=== PATIENT | male | born 1995 | race African-American/Black ===

== ENCOUNTER 2018-03-15 07:33 | Inpatient (IN) ==
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
[2018-03-15 08:23] LABS: Baso % (Auto) 0.1 % (0.0-2.0); Eos % (Auto) 0.1 % (0.0-4.0); Hematocrit 31.9 % (39.0-51.0); Hemoglobin 10.4 gm/dL (13.0-17.0); Lymph # (Auto) 2.3 th/mm3 (1.0-4.8); Lymph % (Auto) 10.7 % (9.0-44.0); Mean Corpuscular HGB Conc 32.6 % (32.0-36.0); Mean Corpuscular Hemoglobin 32.1 pg (27.0-34.0); Mean Corpuscular Volume 98.4 fL (80.0-100.0); Mean Platelet Volume 7.6 fL (7.0-11.0); Mono # (Auto) 1.7 th/mm3 (0.0-0.9); Mono % (Auto) 7.9 % (0.0-8.0); Neut # (Auto) 17.4 th/mm3 (1.8-7.7); Neut % (Auto) 81.2 % (16.0-70.0); Platelet Count 294 th/mm3 (150-450); Red Blood Count 3.24 mil/mm3 (4.50-5.90); Red Cell Distribution Width 12.2 % (11.6-17.2); White Blood Count 21.4 th/mm3 (4.0-11.0)
[2018-03-15 08:33] LABS: Activated Partial Thrombo Time 21.2 sec (24.3-30.1); INR 1.1 Ratio; Prothrombin Time 10.9 sec (9.8-11.6)
[2018-03-15] MEDS ORDERED: Tetanus/Diphtheria Toxoid Adult Vaccine Inj 0.5 ML Vial IM ONE (08:52)
[2018-03-15] MEDS ORDERED: Sod Chloride 0.9% Inj 1,000 ML IV.SIG ONE (08:52)
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
[2018-03-15] MEDS ORDERED: Lidocaine 1% Inj 50 ML Vial INFILTRATN ONE (12:44)
[2018-03-15] MEDS ORDERED: Lidocaine PF 1% Inj 30 ML Vial INFILTRATN ONE ×2 (13:32→14:59)
[2018-03-15] MEDS ORDERED: Bisacodyl 10 MG Supp RECTAL PRN (16:00)
[2018-03-15] MEDS ORDERED: Acetaminophen 325 MG Tablet PO PRN ×2 (16:00→16:05)
[2018-03-15] MEDS ORDERED: Naloxone Inj 0.4 MG/ML Vial IV.PUSH PRN (16:05)
[2018-03-15] MEDS ORDERED: Morphine Sulfate Inj 2 MG/ML Vial IV.PUSH PRN (16:05)
[2018-03-15] MEDS ORDERED: Famotidine Premix Inj 20 MG/50 ML PIGGYBACK IV.SIG SCH (17:00)
[2018-03-15 17:12] LABS: Amphetamine Screen,Urine Pos (Neg); Barbiturate Screen,Urine Neg (Neg); Cannabinoid Screen,Urine Pos (Neg); Cocaine Screen,Urine Neg (Neg); Opiate Screen,Urine Neg (Neg)
[2018-03-15] MEDS ORDERED: Morphine Inj 4 MG/ML Vial IV.PUSH PRN (17:37)
[2018-03-15] MEDS: Morphine Inj 4 MG/ML Vial IV.PUSH PRN (18:05)
[2018-03-15] MEDS: Famotidine PF Inj 20 MG/2 ML Vial IV.PUSH SCH (18:05)
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
[2018-03-15] MEDS: ceFAZolin Inj 2,000 MG in Sodium Chlor 0.9% Inj 80 ML IV.SIG SCH (18:34)
[2018-03-15] MEDS: Senna/Docusate Sodium 8.6/50 MG Tablet PO SCH (22:28)
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
[2018-03-16] MEDS: ceFAZolin Inj 2,000 MG in Sodium Chlor 0.9% Inj 80 ML IV.SIG SCH ×3 (02:42→18:33)
[2018-03-16] MEDS: Morphine Inj 4 MG/ML Vial IV.PUSH PRN (02:43)
[2018-03-16] MEDS: Famotidine PF Inj 20 MG/2 ML Vial IV.PUSH SCH ×2 (06:50→18:33)
[2018-03-16] MEDS: Senna/Docusate Sodium 8.6/50 MG Tablet PO SCH ×2 (09:21→22:09)
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
[2018-03-16] MEDS ORDERED: Morphine Inj 4 MG/ML Vial IV.PUSH PRN (10:15)
[2018-03-16] MEDS: oxyCODONE/Acetaminophen 10/325 Tablet PO PRN ×2 (10:18→18:34)
--- NOTE | 2018-03-16 10:46 | XR ---
EXAM DATE: 03/16/2018 10:43 AM EDT AGE/SEX: 22 years / Male INDICATIONS: Cough, SHort of Breath CLINICAL DATA: This is the patient's subsequent encounter. Patient reports that signs and symptoms h ave been present for 2 days and indicates a pain score of 5/10. MEDICAL/SURGICAL HISTORY: None. None. [place] [facility] [place]. . FINDINGS: A single AP view of the chest demonstrates the lungs to be symmetrically aerated without evidence of mass, infiltrate or effusion. The cardiomediastinal contours are unremarkable. Osseous structures a re intact. CONCLUSION: No acute cardiopulmonary disease Electronically signed by: Gil Alvarenga MD 03/16/2018 10:45 AM EDT
--- NOTE | 2018-03-16 13:18 | MR ---
EXAM DATE: 03/16/2018 1:09 PM EDT AGE/SEX: 22 years / Male INDICATIONS: Pain. CLINICAL DATA: This is the patient's initial encounter. Patient reports that signs and symptoms have been present for 2 days and indicates a pain score of 9/10. MEDICAL/SURGICAL HISTORY: None. None. COMPARISON: [facility] – [place], [place] CERVICAL SPINE W/O CONTRAST, 03/16/2018. . TECHNIQUE: Multiplanar, multisequence MRI of the lumbar spine was performed without contrast. Patie nt was scanned in a sitting position; neutral, flexion, and extension scans were performed in the sa gittal plane. FINDINGS: Vertebra: Homogeneous signal. Normal alignment. Conus: Normal level and configuration. T12-L1: The thecal sac has a normal diameter. No evidence of disc bulge or protrusion. The neural foramina are patent bilaterally. L1-L2: The thecal sac has a normal diameter. No evidence of disc bulge or protrusion. The neural foramina are patent bilaterally. L2-L3: The thecal sac has a normal diameter. No evidence of disc bulge or protrusion. The neural foramina are patent bilaterally. L3-L4: The thecal sac has a normal diameter. No evidence of disc bulge or protrusion. The neural foramina are patent bilaterally. L4-L5: The thecal sac has a normal diameter. No evidence of disc bulge or protrusion. The neural foramina are patent bilaterally. L5-S1: The thecal sac has a normal diameter. No evidence of disc bulge or protrusion. The neural foramina are patent bilaterally. CONCLUSION: 1. Normal lumbar spine Electronically signed by: Gil Alvarenga MD 03/16/2018 1:17 PM EDT
--- NOTE | 2018-03-16 13:19 | MR ---
EXAM DATE: 03/16/2018 1:14 PM EDT AGE/SEX: 22 years / Male INDICATIONS: Pain. CLINICAL DATA: This is the patient's initial encounter. Patient reports that signs and symptoms have been present for 2 days and indicates a pain score of 8/10. MEDICAL/SURGICAL HISTORY: None. None. COMPARISON: [facility] – [place], MR CERVICAL SPINE W/O CONTRAST, 03/16/2018. . TECHNIQUE: Multiplanar, multisequence MRI of the thoracic spine was performed. FINDINGS: Vertebrae: Normal vertebral body height. Homogeneous marrow signal. Alignment: Normal. Cord: Normal position and configuration. T1-T2: The thecal sac has a normal diameter. No evidence of disc bulge or protrusion. T2-T3: The thecal sac has a normal diameter. No evidence of disc bulge or protrusion. T3-T4: The thecal sac has a normal diameter. No evidence of disc bulge or protrusion. T4-T5: The thecal sac has a normal diameter. No evidence of disc bulge or protrusion. T5-T6: The thecal sac has a normal diameter. No evidence of disc bulge or protrusion. T6-T7: The thecal sac has a normal diameter. No evidence of disc bulge or protrusion. T7-T8: The thecal sac has a normal diameter. No evidence of disc bulge or protrusion. T8-T9: The thecal sac has a normal diameter. No evidence of disc bulge or protrusion. T9-T10: The thecal sac has a normal diameter. No evidence of disc bulge or protrusion. T10-T11: The thecal sac has a normal diameter. No evidence of disc bulge or protrusion. T11-T12: The thecal sac has a normal diameter. No evidence of disc bulge or protrusion. T12-L1: The thecal sac has a normal diameter. No evidence of disc bulge or protrusion. CONCLUSION: 1. Normal thoracic spine Electronically signed by: Gil Alvarenga MD 03/16/2018 1:17 PM EDT
--- NOTE | 2018-03-16 13:28 | MR ---
EXAM DATE: 03/16/2018 1:07 PM EDT AGE/SEX: 22 years / Male INDICATIONS: Pain. CLINICAL DATA: This is the patient's initial encounter. Patient reports that signs and symptoms have been present for 2 days and indicates a pain score of 8/10. MEDICAL/SURGICAL HISTORY: None. None. COMPARISON: [facility] – [place], [place] LUMBAR SPINE W/O CONTRAST, 03/16/2018. [facility] – [place], CTA NECK W CONTRAST W 3D, 03/15/20 18. . TECHNIQUE: Multiplanar, multisequence MRI examination of the cervical spine was performed without co ntrast. FINDINGS: Vertebrae: Normal vertebral body height. Homogeneous marrow signal. There is a penetrating injury a t the level of C5-6 level on the right Alignment: Normal. Cord: There is T2 signal abnormality within the cord at C5-6 level due to penetrating injury/contusi on. There is high T2 signal abnormality within the right posterior epidural region beginning at C2-3 level extending posteriorly and involves both sides of the posterior epidural space , which compresse s the thecal sac and cord anteriorly more prominent at C5-6 level. This does cause mild narrowing of the thecal sac. This measures 5 mm in AP dimension greatest at C5-6 level. Post Fossa: The cerebellar tonsils are normal in position. C2-C3: The thecal sac has a normal configuration. There is no evidence of disc herniation or spinal canal stenosis. The neural foramina are patent bilaterally. C3-C4: The thecal sac has a normal configuration. There is no evidence of disc herniation or spinal canal stenosis. The neural foramina are patent bilaterally. C4-C5: The thecal sac has a normal configuration. There is no evidence of disc herniation or spinal canal stenosis. The neural foramina are patent bilaterally. C5-C6: The thecal sac has a normal configuration. There is no evidence of disc herniation or spinal canal stenosis. The neural foramina are patent bilaterally. C6-C7: The thecal sac has a normal configuration. There is no evidence of disc herniation or spinal canal stenosis. The neural foramina are patent bilaterally. C7-T1: No epidural impressions seen. CONCLUSION: 1. Posterior epidural hematoma extending from C2-3 down to the upper thoracic spine but greatest at the C5-C6 region due to penetrating injury. 2. There is mild canal stenosis of the thecal sac which is displaced anteriorly at C5-6 level. 3. Contusion within the cord at C5-6 level. Electronically signed by: Gil Alvarenga MD 03/16/2018 1:27 PM EDT
[2018-03-16 15:36] LABS: Bacteria,Urine Rare /hpf; Bilirubin,Urine Negative (Negative); Clarity,Urine Hazy (Clear); Color,Urine Yellow (Yellw/Straw); Glucose,Urine (UA) Negative (Negative); Leukocyte Esterase,Urine Negative (Negative); Mucus,Urine Few /lpf (Occasional); Nitrite,Urine Negative (Negative); Specific Gravity,Urine 1.028 (1.002-1.035)
--- NOTE | 2018-03-16 20:01 | P.PNOP ---
Physical Exam Vital signs: Vital Signs 03/15/18 20:00 03/16/18 07:42 03/16/18 14:04 Temperature 98.5 F 98.5 F 97.9 F Pulse Rate 77 72 70 Respiratory Rate 16 12 18 Blood Pressure 117/57 L 135/62 113/58 L Pulse Oximetry 99 96 98 Intake & Output 03/16/18 03/16/18 03/17/18 06:59 18:59 06:59 Intake Total 2300 / 2300 629 / 629 Balance 2300 / 2300 629 / 629 Intake: IV 2300 / 2300 629 / 629 LR 1000 mL Inj 1,000 ML @ 100 1000 / 1000 529 / 529 mls/hr IV.CONT .Q10H [facility] Rx#: [id number] NS Inj 1,000 ML @ Wide Open IV. 1000 / 1000 SIG BOLUS ONE Rx#:[id number] Ancef Inj 1,000 MG In NS Inj 100 / 100 100 ML @ 100 mls/hr IV.SIG ONCE ONE Rx#:[id number] Ancef Inj 2,000 MG In NS Inj 80 200 / 200 100 / 100 ML @ 200 mls/hr IV.SIG Q8H [facility] Rx#:[id number] Results - Labs CBC & Chem 7: 03/15/18 09:55 Laboratory Results - last 24 hr 03/16/18 14:53 Urine Color Yellow Urine Clarity Hazy H Urine pH 6.0 Ur Specific [place] 1.028 Urine Protein Negative Urine Glucose (UA) Negative Urine Ketones Negative Urine Occult Blood Small H Urine Nitrate Negative Urine Bilirubin Negative Urine Urobilinogen Less than 2 Ur Leukocyte Esterase Negative Urine RBC 7 H Urine WBC 6 H Urine Bacteria Rare H Urine Mucus Few H Micro UA Comment Culture not ind Urine Culture Comments Culture not ind - Imaging Impressions Cervical Spine MRI 03/16/18 00:00 CONCLUSION: 1. Posterior epidural hematoma extending from C2-3 down to the upper thoracic spine but greatest at the C5-C6 region due to penetrating injury. 2. There is mild canal stenosis of the thecal sac which is displaced anteriorly at C5-6 level. 3. Contusion within the cord at C5-6 level. Chest X-Ray 03/16/18 00:00 CONCLUSION: No acute cardiopulmonary disease Lumbar Spine MRI 03/16/18 00:00 CONCLUSION: 1. Normal lumbar spine Thoracic Spine MRI 03/16/18 00:00 CONCLUSION: 1. Normal thoracic spine Assessment and Plan - Assessment and Plan See prior consult note. Per primary physician patient is now reconsidering surgery for his right hand and left wrist which he refused yesterday. Attempted to see patient but he was in the restroom. Patient may be discharged for followup as outpatient regarding his had lacerations. Currently sutured without erythema/drainage.
[2018-03-17] MEDS: oxyCODONE/Acetaminophen 10/325 Tablet PO PRN ×3 (00:45→20:04)
[2018-03-17] MEDS: ceFAZolin Inj 2,000 MG in Sodium Chlor 0.9% Inj 80 ML IV.SIG SCH ×3 (03:58→17:51)
[2018-03-17] MEDS: Famotidine PF Inj 20 MG/2 ML Vial IV.PUSH SCH ×2 (06:56→17:58)
[2018-03-17 09:09] LABS: Baso % (Auto) 0.3 % (0.0-2.0); Eos # (Auto) 0.2 th/mm3 (0.0-0.4); Hematocrit 23.4 % (39.0-51.0); Hemoglobin 7.9 gm/dL (13.0-17.0); Lymph # (Auto) 2.6 th/mm3 (1.0-4.8); Lymph % (Auto) 27.7 % (9.0-44.0); Mean Corpuscular HGB Conc 33.7 % (32.0-36.0); Mean Corpuscular Hemoglobin 32.9 pg (27.0-34.0); Mean Corpuscular Volume 97.9 fL (80.0-100.0); Mono % (Auto) 10.2 % (0.0-8.0); Neut # (Auto) 5.7 th/mm3 (1.8-7.7); Neut % (Auto) 59.8 % (16.0-70.0); Platelet Count 227 th/mm3 (150-450); Red Blood Count 2.39 mil/mm3 (4.50-5.90); Red Cell Distribution Width 12.2 % (11.6-17.2); White Blood Count 9.5 th/mm3 (4.0-11.0)
[2018-03-17 09:21] LABS: Prothrombin Time 10.2 sec (9.8-11.6)
[2018-03-17 09:36] LABS: Albumin 2.7 g/dL (3.4-5.0); Anion Gap 9 meq/L (5-15); Aspartate Aminotransferase 13 U/L (15-39); Blood Urea Nitrogen 7 mg/dL (7-18); Calcium 8.3 mg/dL (8.5-10.1); Carbon Dioxide 28.1 meq/L (21.0-32.0); Chloride 104 meq/L (98-107); Glomerular Filtration Rate Greater Than 89 mL/min (>89); Glucose,Random 90 mg/dL (74-106); Potassium 3.3 meq/L (3.5-5.1); Sodium 141 meq/L (136-145)
[2018-03-17 09:41] LABS: Alanine Aminotransferase 12 U/L (9-52); Alkaline Phosphatase 33 U/L (45-117); Total Protein 5.8 g/dL (6.4-8.2)
[2018-03-17] MEDS: Senna/Docusate Sodium 8.6/50 MG Tablet PO SCH ×2 (11:51→21:36)
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
--- NOTE | 2018-03-17 14:21 | P.PNWCN ---
Wound Care Nurse Consult Description: Wound consult ordered by for wound management. Communicated with: Edouard PACHECO Recommendation: No recommendations at this time. Additional information: Patient was seen by instructional writer today for wound management.Patient alert in bed declined instructional writer to visualize laceration stated all laceration are closed up and denies any drainage.Patient stated he finally got comfortable and would like to be left alone. Wound/Pressure Injury - Patient Status Premedicated for Pain Prior to Dressing Change: No - Wound Right Hand Wound Assessment: Ongoing Wound Type: Laceration Is This a Chronic Wound: No Length: 5 Wound Bed Appearance: Sutures Drainage Amount: None Dressing Status: Open to Air Left Wrist Wound Assessment: Ongoing Wound Type: Laceration Is This a Chronic Wound: No Wound Bed Appearance: Sutures Drainage Amount: None Dressing Status: Open to Air Right Upper Arm Wound Assessment: Ongoing Wound Type: Laceration Is This a Chronic Wound: No Wound Bed Appearance: [place] Drainage Amount: None Dressing Status: Open to Air Right Finger - 3rd Digit Wound Assessment: Ongoing Wound Type: Laceration Is This a Chronic Wound: No Drainage Amount: None Dressing Status: Open to Air Right Occipital Wound Assessment: Ongoing Wound Type: Laceration Is This a Chronic Wound: No Drainage Amount: None Dressing Status: Open to Air Right Cheek Wound Assessment: Ongoing Wound Type: Laceration Is This a Chronic Wound: No Drainage Amount: None Dressing Status: Open to Air Right Anterior Head Wound Assessment: Ongoing Wound Type: Laceration Is This a Chronic Wound: No Wound Bed Appearance: [place] Drainage Amount: None Dressing Status: Dry & Intact, Open to Air Left Neck Wound Assessment: Ongoing Wound Type: Laceration Is This a Chronic Wound: No Wound Bed Appearance: Sutures Surrounding Tissue Temperature: Warm Drainage Amount: None Dressing Status: Dry & Intact, Open to Air Right Upper Back Wound Assessment: Ongoing Wound Type: Laceration Is This a Chronic Wound: No Wound Bed Appearance: [place] Surrounding Tissue Temperature: Warm Drainage Amount: None Dressing Status: Dry & Intact, Open to Air Left Finger - 5th Digit Wound Assessment: Ongoing Wound Type: Laceration Is This a Chronic Wound: No Surrounding Tissue Temperature: Warm Drainage Odor: No Odor Dressing Status: Dry & Intact, Open to Air Incision - Patient Status Premedicated for Pain Prior to Dressing Change: No
[2018-03-18 00:20] LABS: Baso % (Auto) 0.3 % (0.0-2.0); Eos # (Auto) 0.3 th/mm3 (0.0-0.4); Eos % (Auto) 3.1 % (0.0-4.0); Hematocrit 22.4 % (39.0-51.0); Hemoglobin 7.5 gm/dL (13.0-17.0); Lymph # (Auto) 3.6 th/mm3 (1.0-4.8); Lymph % (Auto) 35.5 % (9.0-44.0); Mean Corpuscular HGB Conc 33.6 % (32.0-36.0); Mean Corpuscular Volume 98.3 fL (80.0-100.0); Mean Platelet Volume 7.7 fL (7.0-11.0); Mono # (Auto) 0.9 th/mm3 (0.0-0.9); Mono % (Auto) 8.7 % (0.0-8.0); Neut # (Auto) 5.3 th/mm3 (1.8-7.7); Neut % (Auto) 52.4 % (16.0-70.0); Platelet Count 253 th/mm3 (150-450); Red Blood Count 2.28 mil/mm3 (4.50-5.90); White Blood Count 10.1 th/mm3 (4.0-11.0)
[2018-03-18] MEDS: oxyCODONE/Acetaminophen 10/325 Tablet PO PRN ×4 (02:30→21:17)
[2018-03-18] MEDS: ceFAZolin Inj 2,000 MG in Sodium Chlor 0.9% Inj 80 ML IV.SIG SCH ×3 (02:31→17:24)
[2018-03-18] MEDS: Famotidine PF Inj 20 MG/2 ML Vial IV.PUSH SCH ×2 (05:53→17:23)
[2018-03-18] MEDS: Senna/Docusate Sodium 8.6/50 MG Tablet PO SCH ×2 (08:32→20:09)
[2018-03-18 10:06] LABS: Baso % (Auto) 0.3 % (0.0-2.0); Eos # (Auto) 0.3 th/mm3 (0.0-0.4); Eos % (Auto) 3.6 % (0.0-4.0); Hemoglobin 7.6 gm/dL (13.0-17.0); Lymph # (Auto) 3.3 th/mm3 (1.0-4.8); Mean Corpuscular HGB Conc 33.2 % (32.0-36.0); Mean Corpuscular Hemoglobin 32.8 pg (27.0-34.0); Mean Corpuscular Volume 98.8 fL (80.0-100.0); Mean Platelet Volume 7.8 fL (7.0-11.0); Mono # (Auto) 0.6 th/mm3 (0.0-0.9); Mono % (Auto) 7.3 % (0.0-8.0); Neut # (Auto) 4.4 th/mm3 (1.8-7.7); Neut % (Auto) 50.8 % (16.0-70.0); Platelet Count 263 th/mm3 (150-450); Red Blood Count 2.33 mil/mm3 (4.50-5.90); Red Cell Distribution Width 12.1 % (11.6-17.2); White Blood Count 8.7 th/mm3 (4.0-11.0)
[2018-03-18 10:34] LABS: Anion Gap 7 meq/L (5-15); Blood Urea Nitrogen 7 mg/dL (7-18); Calcium 8.4 mg/dL (8.5-10.1); Carbon Dioxide 29.7 meq/L (21.0-32.0); Chloride 106 meq/L (98-107); Glomerular Filtration Rate Greater Than 89 mL/min (>89); Glucose,Random 85 mg/dL (74-106); Potassium 3.8 meq/L (3.5-5.1); Sodium 143 meq/L (136-145)
[2018-03-18 10:36] LABS: Iron 45 mcg/dL (65-175)
[2018-03-18 11:04] LABS: % Iron Saturation 21.3 % (20-50); Ferritin 82 ng/mL (26-388); Folate 9.3 ng/mL (3.1-17.5); Total Iron Binding Capacity 211 mcg/dL (250-450); Vitamin B12 359 pg/mL (193-986)
[2018-03-18] MEDS ORDERED: Gadodiamide PF Inj 287 MG/ML 5 ML Syringe (for RAD MRI) IVCONTRAST ONE (13:08)
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
[2018-03-18] MEDS: Vancomycin Inj 1,300 MG in Sodium Chlor 0.9% Inj 500 ML IV.SIG SCH (18:56)
[2018-03-18] MEDS: Piperacil/Tazo 3.375 GM Premix 50 ML IV.SIG SCH (20:12)
[2018-03-18] MEDS ORDERED: HYDROmorphone PF Inj 2 MG/ML Vial IV.PUSH ONE (22:00)
[2018-03-19] MEDS: Piperacil/Tazo 3.375 GM Premix 50 ML IV.SIG SCH ×4 (02:00→22:03)
[2018-03-19] MEDS: oxyCODONE/Acetaminophen 10/325 Tablet PO PRN ×4 (04:24→22:56)
[2018-03-19] MEDS: Vancomycin Inj 1,300 MG in Sodium Chlor 0.9% Inj 500 ML IV.SIG SCH ×2 (06:16→17:38)
[2018-03-19] MEDS: Famotidine PF Inj 20 MG/2 ML Vial IV.PUSH SCH ×2 (06:16→17:06)
[2018-03-19 07:26] LABS: Baso % (Auto) 0.3 % (0.0-2.0); Eos # (Auto) 0.3 th/mm3 (0.0-0.4); Eos % (Auto) 4.6 % (0.0-4.0); Hematocrit 23.4 % (39.0-51.0); Lymph # (Auto) 2.8 th/mm3 (1.0-4.8); Lymph % (Auto) 37.3 % (9.0-44.0); Mean Corpuscular Hemoglobin 33.4 pg (27.0-34.0); Mean Corpuscular Volume 98.2 fL (80.0-100.0); Mean Platelet Volume 7.2 fL (7.0-11.0); Mono # (Auto) 0.5 th/mm3 (0.0-0.9); Mono % (Auto) 7.1 % (0.0-8.0); Neut # (Auto) 3.7 th/mm3 (1.8-7.7); Neut % (Auto) 50.7 % (16.0-70.0); Platelet Count 314 th/mm3 (150-450); Red Blood Count 2.39 mil/mm3 (4.50-5.90); Red Cell Distribution Width 12.1 % (11.6-17.2); White Blood Count 7.4 th/mm3 (4.0-11.0)
[2018-03-19 07:44] LABS: Anion Gap 6 meq/L (5-15); Blood Urea Nitrogen 7 mg/dL (7-18); Calcium 8.6 mg/dL (8.5-10.1); Carbon Dioxide 30.7 meq/L (21.0-32.0); Chloride 106 meq/L (98-107); Glomerular Filtration Rate Greater Than 89 mL/min (>89); Glucose,Random 91 mg/dL (74-106); Potassium 3.6 meq/L (3.5-5.1); Sodium 143 meq/L (136-145)
[2018-03-19] MEDS: Senna/Docusate Sodium 8.6/50 MG Tablet PO SCH ×2 (09:14→22:59)
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
--- NOTE | 2018-03-19 15:18 | P.PNNS ---
Subjective Interval history: Patient reports no new changes. Complains of pain between the shoulder blades and at times it radiates into the arms. Indicates that has been told he needs surgery on his right hand Physical Exam Vital signs: Vital Signs 03/18/18 16:00 03/18/18 20:00 03/18/18 23:11 Temperature 98.1 F 98.3 F Pulse Rate 80 81 Respiratory Rate 20 16 16 Blood Pressure 141/76 H 134/67 Pulse Oximetry 96 98 03/19/18 00:00 03/19/18 04:00 03/19/18 08:00 Temperature 98.3 F 97.8 F 98.0 F Pulse Rate 82 62 58 L Respiratory Rate 16 16 20 Blood Pressure 120/56 L 121/55 L 123/56 L Pulse Oximetry 96 97 96 03/19/18 12:00 Temperature 97.9 F Pulse Rate 65 Respiratory Rate 20 Blood Pressure 114/60 Pulse Oximetry 97 Intake & Output 03/18/18 03/19/18 03/19/18 18:59 06:59 18:59 Intake Total 920 / 920 1093 / 1093 Output Total 1350 / 1350 400 / 400 Balance -430 / -430 693 / 693 Weight 66.9 kg Intake: IV 200 / 200 613 / 613 Zosyn 3.375 GM Premix 50 ML @ 100 / 100 100 mls/hr IV.SIG Q6H [facility] Rx#: [id number] Vancomycin Inj 1,300 MG In NS 513 / 513 Inj 500 ML @ 250 mls/hr IV.SIG Q12H [facility] Rx#:[id number] Ancef Inj 2,000 MG In NS Inj 80 200 / 200 ML @ 200 mls/hr IV.SIG Q8H [facility] Rx#:[id number] Oral 720 / 720 480 / 480 Output: Urine 1350 / 1350 400 / 400 Other: # Bowel Movements 0 0 Narrative: Lethargic but awakens easily soft-spoken Follows commands. Fluent speech Swelling of the right hand with decreased motion MRI of the cervical spine shows evidence of injury at the C5-6 level Assessment and Plan - Plan Patient appears unchanged. Discussed with his nurse. Needs continued observation
[2018-03-19] MEDS ORDERED: Gadodiamide PF Inj 287 MG/ML 5 ML Syringe (for RAD MRI) IVCONTRAST ONE (16:25)
--- NOTE | 2018-03-19 17:15 | MR ---
EXAM DATE: 03/19/2018 4:34 PM EDT AGE/SEX: 22 years / Male INDICATIONS: Abscess. CLINICAL DATA: This is the patient's initial encounter. Patient reports that signs and symptoms have been present for 3 days and indicates a pain score of 4/10. MEDICAL/SURGICAL HISTORY: None. None. COMPARISON: No prior exams available for comparison. TECHNIQUE: Multiplanar, multisequence MRI examination was performed without contrast and after the i ntravenous administration of 13 ml Omniscan (gadodiamide) contrast as a single exam dose. FINDINGS: There is a laceration of the dorsal aspect of the hand between the fourth and fifth metacarpals. Ther e is extensive surrounding edema and soft tissue swelling suggesting an associated cellulitis. There is some loculated fluid in the ulnar aspect of the wrist adjacent to the fifth carpometacarpal joint. No bone marrow signal abnormalities seen to suggest osteomyelitis. CONCLUSION: 1. No bone marrow signal abnormality to suggest osteomyelitis. 2. Laceration on the dorsal aspect of wrist with probable surrounding cellulitis. Nonspecific fluid on the ulnar aspect of the wrist as above fifth carpometacarpal joint. This is incompletely evaluated . Electronically signed by: Fransisco Mccormick MD 03/19/2018 5:14 PM EDT
[2018-03-19] MEDS: Temazepam 15 MG Capsule PO PRN (22:05)
[2018-03-20] MEDS: Piperacil/Tazo 3.375 GM Premix 50 ML IV.SIG SCH ×4 (03:00→22:22)
[2018-03-20] MEDS: Vancomycin Inj 1,300 MG in Sodium Chlor 0.9% Inj 500 ML IV.SIG SCH ×2 (05:13→18:15)
[2018-03-20] MEDS: Famotidine PF Inj 20 MG/2 ML Vial IV.PUSH SCH ×2 (06:15→18:16)
[2018-03-20] MEDS: oxyCODONE/Acetaminophen 10/325 Tablet PO PRN ×3 (08:28→22:20)
[2018-03-20] MEDS: Senna/Docusate Sodium 8.6/50 MG Tablet PO SCH ×2 (08:29→22:24)
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
--- NOTE | 2018-03-20 14:39 | P.PNNS ---
Subjective Interval history: Continues to complain of difficulties with the right hand. Reports she is supposed to be evaluated by hand surgeon for possible surgery Physical Exam Vital signs: Vital Signs 03/19/18 16:00 03/19/18 20:00 03/19/18 23:36 Temperature 97.8 F 98.7 F Pulse Rate 99 H 75 Respiratory Rate 20 18 20 Blood Pressure 136/79 128/73 Pulse Oximetry 97 99 03/20/18 00:00 03/20/18 04:00 03/20/18 08:00 Temperature 98.7 F 97.7 F 99.1 F Pulse Rate 85 70 79 Respiratory Rate 18 18 18 Blood Pressure 128/64 145/88 H 142/81 H Pulse Oximetry 99 100 100 03/20/18 12:00 Temperature 98.6 F Pulse Rate 74 Respiratory Rate 18 Blood Pressure 138/71 Pulse Oximetry 100 Intake & Output 03/19/18 03/20/18 03/20/18 18:59 06:59 18:59 Intake Total 1573 / 1573 973 / 973 Output Total 1000 / 1000 800 / 800 Balance 573 / 573 173 / 173 Weight 69.6 kg Intake: IV 613 / 613 613 / 613 Zosyn 3.375 GM Premix 50 ML @ 100 / 100 100 / 100 100 mls/hr IV.SIG Q6H [facility]LV[facility] Rx#: [id number] Vancomycin Inj 1,300 MG In NS 513 / 513 513 / 513 Inj 500 ML @ 250 mls/hr IV.SIG Q12H [facility]LV[facility] Rx#:[id number] Oral 960 / 960 360 / 360 Output: Urine 1000 / 1000 800 / 800 Narrative: Alert and awake follows commands well. Fluent speech. Somewhat belligerent Able to stand and walk about. Right hand is swollen and tender Review of MRI from 03/18 shows evidence of continued lesion at C5-6. No evidence of epidural hematoma Assessment and Plan - Plan Patient is essentially stable and unchanged. Does not appear to be any need for neurosurgical intervention at this point. Will need follow-up as an outpatient with follow-up MRI
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
[2018-03-20] MEDS: Temazepam 15 MG Capsule PO PRN (22:30)
[2018-03-21] MEDS: Piperacil/Tazo 3.375 GM Premix 50 ML IV.SIG SCH ×2 (03:25→08:53)
[2018-03-21] MEDS: Vancomycin Inj 1,300 MG in Sodium Chlor 0.9% Inj 500 ML IV.SIG SCH (05:32)
[2018-03-21] MEDS: Famotidine PF Inj 20 MG/2 ML Vial IV.PUSH SCH (05:33)
[2018-03-21] MEDS: oxyCODONE/Acetaminophen 10/325 Tablet PO PRN ×2 (08:53→15:21)
[2018-03-21] MEDS: Senna/Docusate Sodium 8.6/50 MG Tablet PO SCH (08:54)
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
== END 2018-03-21 15:52 | disposition home or self-care (01) ==
LOC: NEDA 07:33 → NEPE 07:33 → NEPFCDU 16:38 → N04 03-16 17:06
PROVIDERS: ADMIT Internal Medicine; ATTEND Internal Medicine